=== PATIENT | male | born 1980 | race Caucasian/White ===

== ENCOUNTER → 2020-01-10 | Outpatient (CLI) | payer OTHER | LOC: M LABSMTC 12:00 | PROVIDERS: ATTEND Family Medicine | DX: Z11.59 Encounter for screening for other viral diseases (principal) ==

== ENCOUNTER → 2021-01-21 | Outpatient (CLI) | payer BC, OTHER ==
[2021-01-21 13:57] LABS: BASO # 0.1 10^3/uL (0.0-0.2); BASO % 0.7 % (0.0-1.0); EOS % 0.2 % (0.0-3.0); HEMATOCRIT 40.7 % (42.0-52.0); HEMOGLOBIN 13.9 g/dl (13.5-17.5); LYMPH # 2.2 10^3/uL (1.5-5.0); LYMPH % 25.3 % (24.0-44.0); MEAN CORPUSCULAR HEMOGLOBIN 30.3 pg (27.0-33.0); MEAN CORPUSCULAR HGB CONC 34.2 g/dl (32.0-36.5); MEAN CORPUSCULAR VOLUME 88.9 fl (80.0-96.0); MONO # 0.7 10^3/uL (0.0-0.8); MONO % 8.5 % (2.0-8.0); NEUTROPHILS # 5.7 10^3/uL (1.5-8.5); PLATELET COUNT, AUTOMATED 180 10^3/uL (150-450); RED BLOOD COUNT 4.58 10^6/uL (4.30-6.10); WHITE BLOOD COUNT 8.8 10^3/uL (4.0-10.0)
[2021-01-21 14:38] LABS: ALBUMIN 3.8 GM/DL (3.2-5.2); ALT/SGPT 28 U/L (12-78); BILIRUBIN,TOTAL 0.5 MG/DL (0.2-1.0); BLOOD UREA NITROGEN 15 MG/DL (7-18); CARBON DIOXIDE LEVEL 31 MEQ/L (21-32); CHLORIDE LEVEL 106 MEQ/L (98-107); CHOLESTEROL LEVEL 181 MG/DL (<200); CHOLESTEROL RISK RATIO 4.209 (<5); CREATININE FOR GFR 0.81 MG/DL (0.70-1.30); GLOMERULAR FILTRATION RATE > 60.0 (>60); GLUCOSE, FASTING 78 MG/DL (70-100); HDL CHOLESTEROL 43 MG/DL (>40); LDL CHOLESTEROL 123 MG/DL (<100); NON-HDL-C 138 MG/DL; POTASSIUM SERUM 4.1 MEQ/L (3.5-5.1); PROSTATIC SPECIFIC AG MONITOR 0.54 NG/ML (< 4.00); SODIUM LEVEL 140 MEQ/L (136-145); TOTAL PROTEIN 6.4 GM/DL (6.4-8.2); TRIGLYCERIDES LEVEL 76 MG/DL (<150)
== END ==
LOC: M LAB 13:25
PROVIDERS: ATTEND Family Medicine
DX: Z00.00 Encounter for general adult medical examination without abnormal findings (principal)

== ENCOUNTER → 2024-06-08 | Outpatient (REF) | payer BC, OTHER | LOC: M SMT 11:17 | PROVIDERS: ATTEND Urology | DX: Z30.2 Encounter for sterilization (principal) ==

== ENCOUNTER 2025-05-23 19:25 | Inpatient (IN) | payer BC, OTHER ==
[~2025-05-23] VITALS: Ht 190.5 cm; Wt 87.4 kg
[2025-05-23 21:41] VITALS: BP 137/76; TEMP 97.7; O2SAT 98
[2025-05-23] MEDS ORDERED: MOM 30 ML SUSPENSION UDC PO PRN (23:15)
[2025-05-23] MEDS: UNRESOLVED CLARIFICATION ENTRY XX STA (23:23)
[2025-05-23 23:55] VITALS: BP 136/85; TEMP 100.7; O2SAT 98
[2025-05-24] VITALS (23 sets, daily range): BP systolic 114–137; BP diastolic 73–83; TEMP 99.2–101.2; O2SAT 90–98
[2025-05-24] MEDS: NS (Normal Saline) 0.9% 1,000 ML IV SCH (00:09)
[2025-05-24 00:24] LABS: PLATELET COUNT, AUTOMATED 172 10^3/uL (150-450)
[2025-05-24 00:55] LABS: ALT/SGPT 27 U/L (7.0-40); AST/SGOT 36 U/L (<34); CALCIUM LEVEL 7.7 MG/DL (8.5-10.1); CARBON DIOXIDE LEVEL 32 MMOL/L (20-31); CHLORIDE LEVEL 103 MMOL/L (98-107); CREATININE FOR GFR 0.65 MG/DL (0.70-1.30); GLOMERULAR FILTRATION RATE > 90.0 (>60); MAGNESIUM LEVEL 1.6 MG/DL (1.8-2.4); POTASSIUM SERUM 3.9 MMOL/L (3.5-5.1); SODIUM LEVEL 141 MMOL/L (136-145)
[2025-05-24] MEDS: KETOROLAC 30 MG/ML 1 ML VIAL IV PRN ×2 (01:18→12:38)
[2025-05-24] MEDS: VANCOMYCIN HCL 1,000 MG, VIAL MATE ADAPTER 1 EACH in NS 250 ML IV SCH (01:18)
[2025-05-24 05:47] LABS: PLATELET COUNT, AUTOMATED 182 10^3/uL (150-450)
[2025-05-24 06:15] LABS: ALT/SGPT 23 U/L (7.0-40); AST/SGOT 32 U/L (<34); CALCIUM LEVEL 7.4 MG/DL (8.5-10.1); CARBON DIOXIDE LEVEL 30 MMOL/L (20-31); CHLORIDE LEVEL 101 MMOL/L (98-107); CREATININE FOR GFR 0.57 MG/DL (0.70-1.30); GLOMERULAR FILTRATION RATE > 90.0 (>60); MAGNESIUM LEVEL 1.5 MG/DL (1.8-2.4); POTASSIUM SERUM 3.9 MMOL/L (3.5-5.1); SODIUM LEVEL 138 MMOL/L (136-145)
[2025-05-24] MEDS: TRANEXAMIC ACID 100 MG/ML 10ML VIAL NEB SCH (08:00)
[2025-05-24] MEDS: PANTOPRAZOLE 40MG TAB PO SCH (08:29)
[2025-05-24] MEDS: IPRATROPIUM 0.5 MG/ALBUTEROL 2.5 MG INH SOL UD 3 ML NEB PRN (08:36)
[2025-05-24] MEDS: ONDANSETRON 4MG/2ML VIAL IV PRN (08:58)
[2025-05-24] MEDS: LIDOCAINE 5% PATCH TD SCH (09:00)
[2025-05-24] MEDS: MAG SULF 1GM/100ML (MAG RUN) 1 GM in IV 1 EA IV SCH (10:17)
[2025-05-24] MEDS ORDERED: MORPHINE 2 MG/ML 1 ML VIAL IV PRN (10:40)
[2025-05-24] MEDS ORDERED: ISOVUE-370 76% 100 ML VIAL As Ordered ONE (10:43)
[2025-05-24] MEDS: CYCLOBENZAPRINE 10 MG TABLET PO PRN (11:57)
[2025-05-24] MEDS: ACETAMINOPHEN 325 MG TAB PO PRN (11:57)
[2025-05-24] MEDS: MIDAZOLAM INJ 2 MG/2 ML VIAL IV STA (12:15)
[2025-05-24] MEDS: MIDAZOLAM INJ 2 MG/2 ML VIAL IV ONE (12:17)
[2025-05-24] MEDS: FLUMAZENIL 0.5 MG/5 ML VIAL IV STA (12:39)
[2025-05-24] MEDS ORDERED: LEVALBUTEROL 1.25 MG 0.5ML CONCENTRATE NEB NEB PRN (12:40)
[2025-05-24] MEDS: LIDOCAINE 1% MDV 20 ML VIAL SC STA (12:40)
[2025-05-24] MEDS ORDERED: PERCOCET 5MG/325MG TAB PO PRN (12:40)
[2025-05-24] MEDS ORDERED: BISACODYL 10 MG SUPP PR PRN (12:40)
[2025-05-24] MEDS: TRANEXAMIC ACID 100 MG/ML 10ML VIAL NEB ONE (12:45)
[2025-05-24] MEDS: LEVALBUTEROL 1.25 MG 0.5ML CONCENTRATE NEB NEB SCH (13:17)
[2025-05-24 13:22] LABS: SOURCE, BODY FLUID PLEURAL
[2025-05-24 13:24] LABS: APPEARANCE, BODY FLUID CLOUDY (CLEAR); PLEURAL FL COLOR ORANGE (COLORLESS)
[2025-05-24 13:28] LABS: PH BODY FLUID 7.520 UNITS (NOT ESTABLISHED); SOURCE, BODY FLUID pH PLEURAL
[2025-05-24 14:02] LABS: LDH LACTATE DEHYDROGENASE 351 U/L (120-246)
[2025-05-24] MEDS ORDERED: VENTAER INH (14:34)
[2025-05-24] MEDS ORDERED: HOME MED LIST COMPLETE! XX SCH (14:35)
[2025-05-24] MEDS: PERCOCET 5MG/325MG TAB PO PRN (15:00)
[2025-05-24] MEDS: D5W/0.9% SODIUM CHLORIDE 1,000 ML IV SCH (15:01)
[2025-05-24] MEDS: VANCOMYCIN HCL 1,250 MG, VIAL MATE ADAPTER 1 EACH in NS 250 ML IV SCH (15:01)
[2025-05-24] MEDS ORDERED: MIRALAX *UNIT DOSE* 17 GM PACKET PO PRN (17:00)
[2025-05-24] MEDS: MORPHINE 4 MG/ML 1 ML VIAL IV PRN ×2 (17:36→20:55)
[2025-05-24] MEDS ORDERED: KETOROLAC 30 MG/ML 1 ML VIAL IV SCH (18:00)
[2025-05-24] MEDS: DOCUSATE SODIUM 100 MG CAPSULE PO SCH (20:33)
[2025-05-24] MEDS: SENNA 8.6 MG TAB PO SCH (20:33)
[2025-05-24] MEDS: ACETAMINOPHEN 500 MG TAB PO SCH (20:54)
[2025-05-24] MEDS: HEPARIN SOD 5000 UNITS/ML 1 ML VIAL/SYRINGE SC SCH (20:55)
[2025-05-25] VITALS (11 sets, daily range): BP systolic 104–126; BP diastolic 62–76; TEMP 97.2–102.2; O2SAT 93–98
[2025-05-25] MEDS: ACETAMINOPHEN *IV* 1,000 MG in IV 1 EA IV ONE (04:19)
[2025-05-25 06:25] LABS: ABG BASE EXCESS 7.1 (-2.0-2.0); ABG HCO3 30.8 MMOL/L (22.0-26.0); ABG O2 SATURATION 99.1 % (95.0-99.0); ABG PARTIAL PRESSURE CO2 40.4 mmHg (35.0-45.0); ABG PARTIAL PRESSURE O2 151.0 mmHg (75.0-100.0); ABG STANDARD HCO3 30.9 MMOL/L. (22.0-26.0); ABG TOTAL CO2 32.0 MMOL/L (22.0-29.0); ABG pH (ARTERIAL) 7.500 UNITS (7.350-7.450)
[2025-05-25 07:38] LABS: PLATELET COUNT, AUTOMATED 260 10^3/uL (150-450)
[2025-05-25 08:07] LABS: CALCIUM LEVEL 7.1 MG/DL (8.5-10.1); CARBON DIOXIDE LEVEL 30 MMOL/L (20-31); CHLORIDE LEVEL 98 MMOL/L (98-107); CREATININE FOR GFR 0.53 MG/DL (0.70-1.30); GLOMERULAR FILTRATION RATE > 90.0 (>60); POTASSIUM SERUM 3.5 MMOL/L (3.5-5.1); SODIUM LEVEL 136 MMOL/L (136-145)
[2025-05-25 08:14] LABS: ATYPICAL LYMPH 2 % (0-5); LYMPHOCYTES 12 % (16-44); MONOCYTES 2 % (0-5); NEUTROPHILS 76 % (28-66); PLATELET ESTIMATE NORMAL (NORMAL)
[2025-05-25] MEDS: KETOROLAC 30 MG/ML 1 ML VIAL IV SCH (12:18)
[2025-05-25 12:29] LABS: MAGNESIUM LEVEL 1.8 MG/DL (1.8-2.4)
[2025-05-25] MEDS: PIPERACILLIN/TAZOBACTAM SOD 4.5 GM in DEXTROSE 5% (D5W) ADV/MINI-BAG 50 ML IV SCH (15:15)
[2025-05-25] MEDS: LINEZOLID 600 MG in IV 1 EA IV SCH (16:40)
[2025-05-26] VITALS (8 sets, daily range): BP systolic 105–144; BP diastolic 60–74; TEMP 99.5–102.2; O2SAT 93–98
[2025-05-26 06:29] LABS: BASO # 0.1 10^3/uL (0.0-0.2); BASO % 0.3 % (0.0-1.0); EOS # 0.1 10^3/uL (0.0-0.5); EOS % 0.4 % (0.0-3.0); LYMPH # 1.2 10^3/uL (1.5-5.0); LYMPH % 5.8 % (24.0-44.0); MONO # 1.5 10^3/uL (0.0-0.8); MONO % 6.9 % (2.0-8.0); NEUTROPHILS # 16.8 10^3/uL (1.5-8.5); NEUTROPHILS % 80.0 % (36.0-66.0); PLATELET COUNT, AUTOMATED 287 10^3/uL (150-450)
[2025-05-26 07:01] LABS: CALCIUM LEVEL 7.5 MG/DL (8.5-10.1); CARBON DIOXIDE LEVEL 31 MMOL/L (20-31); CHLORIDE LEVEL 97 MMOL/L (98-107); CREATININE FOR GFR 0.54 MG/DL (0.70-1.30); GLOMERULAR FILTRATION RATE > 90.0 (>60); MAGNESIUM LEVEL 1.9 MG/DL (1.8-2.4); POTASSIUM SERUM 4.0 MMOL/L (3.5-5.1); SODIUM LEVEL 135 MMOL/L (136-145)
[2025-05-26] MEDS: PANTOPRAZOLE 20 MG TAB PO SCH (08:38)
[2025-05-27] VITALS (13 sets, daily range): BP systolic 112–144; BP diastolic 56–76; TEMP 98.4–102.6; O2SAT 93–97
[2025-05-27 05:47] LABS: BASO # 0.1 10^3/uL (0.0-0.2); BASO % 0.4 % (0.0-1.0); EOS # 0.1 10^3/uL (0.0-0.5); EOS % 0.3 % (0.0-3.0); LYMPH # 1.3 10^3/uL (1.5-5.0); LYMPH % 6.6 % (24.0-44.0); MONO # 1.6 10^3/uL (0.0-0.8); MONO % 7.7 % (2.0-8.0); NEUTROPHILS # 16.3 10^3/uL (1.5-8.5); NEUTROPHILS % 80.6 % (36.0-66.0); PLATELET COUNT, AUTOMATED 351 10^3/uL (150-450)
[2025-05-27 06:08] LABS: CALCIUM LEVEL 7.1 MG/DL (8.5-10.1); CARBON DIOXIDE LEVEL 32 MMOL/L (20-31); CHLORIDE LEVEL 100 MMOL/L (98-107); CREATININE FOR GFR 0.64 MG/DL (0.70-1.30); GLOMERULAR FILTRATION RATE > 90.0 (>60); MAGNESIUM LEVEL 1.9 MG/DL (1.8-2.4); POTASSIUM SERUM 4.3 MMOL/L (3.5-5.1); SODIUM LEVEL 137 MMOL/L (136-145)
[2025-05-27] MEDS ORDERED: ALTEPLASE 2 MG/2 ML VIAL XX ONE (11:00)
[2025-05-27] MEDS: ALTEPLASE 10MG IN NS 60ML SYRINGE INTRAPLEU ONE (12:02)
[2025-05-27] MEDS: ACETAMINOPHEN 325 MG TAB PO PRN (12:49)
[2025-05-27] MEDS ORDERED: MIRA33506 PO (14:56)
[2025-05-27] MEDS ORDERED: [UNRECOGNIZED DRUG - CODE] NEB (14:56)
[2025-05-27] MEDS ORDERED: SENN18TA PO (14:56)
[2025-05-27] MEDS ORDERED: IPRA0.00 NEB (14:56)
[2025-05-27] MEDS ORDERED: OXYC-517 PO (14:56)
[2025-05-27] MEDS ORDERED: PANT20TA51 PO (14:56)
[2025-05-27] MEDS ORDERED: ONDA4INJ4 IV (14:56)
[2025-05-27] MEDS ORDERED: METH-1164 PO (14:56)
[2025-05-27] MEDS ORDERED: ACET32TAB PO (14:56)
[2025-05-27] MEDS ORDERED: MORP4INJ2 IV (14:56)
[2025-05-27] MEDS ORDERED: BISA10SU PR (14:56)
[2025-05-27] MEDS ORDERED: [UNRECOGNIZED DRUG - CODE] IV (14:56)
[2025-05-28] VITALS (11 sets, daily range): BP systolic 106–136; BP diastolic 66–76; TEMP 99.3–103.5; O2SAT 92–95
[2025-05-28 05:49] LABS: BASO # 0.1 10^3/uL (0.0-0.2); BASO % 0.4 % (0.0-1.0); EOS # 0.1 10^3/uL (0.0-0.5); EOS % 0.3 % (0.0-3.0); LYMPH # 1.5 10^3/uL (1.5-5.0); LYMPH % 8.3 % (24.0-44.0); MONO # 1.8 10^3/uL (0.0-0.8); MONO % 10.2 % (2.0-8.0); NEUTROPHILS # 13.7 10^3/uL (1.5-8.5); NEUTROPHILS % 77.7 % (36.0-66.0); PLATELET COUNT, AUTOMATED 408 10^3/uL (150-450)
[2025-05-28 06:10] LABS: ALT/SGPT 39 U/L (7.0-40); AST/SGOT 38 U/L (<34); CALCIUM LEVEL 7.3 MG/DL (8.5-10.1); CARBON DIOXIDE LEVEL 29 MMOL/L (20-31); CHLORIDE LEVEL 99 MMOL/L (98-107); CREATININE FOR GFR 0.59 MG/DL (0.70-1.30); GLOMERULAR FILTRATION RATE > 90.0 (>60); MAGNESIUM LEVEL 2.0 MG/DL (1.8-2.4); POTASSIUM SERUM 4.5 MMOL/L (3.5-5.1); SODIUM LEVEL 136 MMOL/L (136-145)
[2025-05-29] VITALS (10 sets, daily range): BP systolic 114–130; BP diastolic 68–71; TEMP 99.8–102.6; O2SAT 94–97
[2025-05-29 07:07] LABS: BASO # 0.0 10^3/uL (0.0-0.2); BASO % 0.2 % (0.0-1.0); EOS # 0.1 10^3/uL (0.0-0.5); EOS % 0.4 % (0.0-3.0); LYMPH # 0.9 10^3/uL (1.5-5.0); LYMPH % 5.9 % (24.0-44.0); MONO # 1.9 10^3/uL (0.0-0.8); MONO % 11.8 % (2.0-8.0); NEUTROPHILS # 12.6 10^3/uL (1.5-8.5); NEUTROPHILS % 79.1 % (36.0-66.0); PLATELET COUNT, AUTOMATED 445 10^3/uL (150-450)
[2025-05-29 08:00] LABS: ALT/SGPT 59 U/L (7.0-40); AST/SGOT 42 U/L (<34); CALCIUM LEVEL 7.5 MG/DL (8.5-10.1); CARBON DIOXIDE LEVEL 28 MMOL/L (20-31); CHLORIDE LEVEL 101 MMOL/L (98-107); CREATININE FOR GFR 0.55 MG/DL (0.70-1.30); GLOMERULAR FILTRATION RATE > 90.0 (>60); MAGNESIUM LEVEL 1.9 MG/DL (1.8-2.4); POTASSIUM SERUM 4.5 MMOL/L (3.5-5.1); SODIUM LEVEL 135 MMOL/L (136-145)
[2025-05-29] MEDS: ACETAMINOPHEN 325 MG TAB PO PRN (09:42)
[2025-05-29] MEDS: KETOROLAC 30 MG/ML 1 ML VIAL IV SCH (16:06)
[2025-05-29] MEDS: LINEZOLID 600 MG TABLET PO SCH (17:30)
[2025-05-29] MEDS: VANCOMYCIN HCL 2,000 MG, VIAL MATE ADAPTER 1 EACH in NS 500 ML IV ONE (19:01)
[2025-05-30 00:01] VITALS: BP 112/66; TEMP 99.5; O2SAT 96
[2025-05-30] MEDS: VANCOMYCIN HCL 1,250 MG, VIAL MATE ADAPTER 1 EACH in NS 250 ML IV SCH (00:07)
[2025-05-30 03:21] VITALS: BP 120/75; TEMP 100.9; O2SAT 93
[2025-05-30 07:36] LABS: BASO # 0.0 10^3/uL (0.0-0.2); BASO % 0.3 % (0.0-1.0); EOS # 0.0 10^3/uL (0.0-0.5); EOS % 0.2 % (0.0-3.0); LYMPH # 1.2 10^3/uL (1.5-5.0); LYMPH % 8.0 % (24.0-44.0); MONO # 2.0 10^3/uL (0.0-0.8); MONO % 13.0 % (2.0-8.0); NEUTROPHILS # 11.8 10^3/uL (1.5-8.5); NEUTROPHILS % 76.2 % (36.0-66.0); PLATELET COUNT, AUTOMATED 530 10^3/uL (150-450)
[2025-05-30 07:43] VITALS: BP 118/64; TEMP 100.2; O2SAT 94
[2025-05-30 08:28] LABS: ALT/SGPT 64 U/L (7.0-40); AST/SGOT 36 U/L (<34); CARBON DIOXIDE LEVEL 29 MMOL/L (20-31); CHLORIDE LEVEL 98 MMOL/L (98-107); CREATININE FOR GFR 0.69 MG/DL (0.70-1.30); GLOMERULAR FILTRATION RATE > 90.0 (>60); MAGNESIUM LEVEL 2.1 MG/DL (1.8-2.4); POTASSIUM SERUM 4.6 MMOL/L (3.5-5.1); SODIUM LEVEL 134 MMOL/L (136-145)
[2025-05-30 09:06] LABS: CALCIUM LEVEL 7.9 MG/DL (8.5-10.1)
[2025-05-30] MEDS: LIDOCAINE 5% PATCH TD PRN (09:27)
[2025-05-30 09:33] VITALS: BP 113/57; TEMP 102; O2SAT 97
[2025-06-03] MEDS ORDERED: KETOROLAC 30 MG/ML 1 ML VIAL IV SCH (16:00)
[2026-05-29] MEDS ORDERED: KETOROLAC 30 MG/ML 1 ML VIAL IV SCH (16:00)
== END 2025-05-30 10:35 | disposition short-term general hospital (02) | DRG 137 ==
LOC: EEVIPCON 21:25 → M PCU 21:25
PROVIDERS: ADMIT Student in an Organized Health Care Education/Training Program; ATTEND Internal Medicine
PROC: 0W9B30Z Drainage of Left Pleural Cavity with Drainage Device, Percutaneous Approach (ICD-10-PCS; principal; 2025-05-24)
DX: J15.212 Pneumonia due to Methicillin resistant Staphylococcus aureus (principal); J96.01 Acute respiratory failure with hypoxia; J86.9 Pyothorax without fistula; J85.0 Gangrene and necrosis of lung; J85.1 Abscess of lung with pneumonia; E87.3 Alkalosis; J90 Pleural effusion, not elsewhere classified; E87.1 Hypo-osmolality and hyponatremia; R04.2 Hemoptysis; F12.90 Cannabis use, unspecified, uncomplicated; G89.29 Other chronic pain; J98.11 Atelectasis; M54.50 Low back pain, unspecified; F41.9 Anxiety disorder, unspecified; K59.00 Constipation, unspecified; R04.0 Epistaxis; D72.829 Elevated white blood cell count, unspecified; J15.20 Pneumonia due to staphylococcus, unspecified; J11.08 Influenza due to unidentified influenza virus with specified pneumonia